=== PATIENT | male | born 1960 | race Hispanic/Latino ===

== ENCOUNTER 2016-10-11 17:02 | Emergency (ER) | payer SELFPAY ==
[2016-10-11] MEDS ORDERED: ZOFRAN IV ONE (17:56)
[2016-10-11 18:23] VITALS: BP 130/67
[2016-10-11 18:40] LABS: Basophils % (Auto) 0.1 % (0.0-1.8); Hematocrit 36.5 % (35.5-45.6); Hemoglobin 12.2 gm/dl (11.8-15.2); Mean Corpuscular HGB Conc 33 % (32-34); Mean Corpuscular Hemoglobin 33 pg (28-32); Mean Corpuscular Volume 100 fl (84-94); Platelet Count 242 K/mm3 (140-440); Red Blood Count 3.65 M/mm3 (3.65-5.03); Red Cell Distribution Width 13.4 % (13.2-15.2); White Blood Count 12.2 K/mm3 (4.5-11.0)
[2016-10-11 18:42] LABS: Urine Drugs of Abuse Note Disclamer
[2016-10-11 18:44] LABS: Anion Gap 17 mmol/L; Blood Urea Nitrogen 12 mg/dL (9-20); Calcium 7.7 mg/dL (8.4-10.2); Carbon Dioxide 28 mmol/L (22-30); Chloride 97.4 mmol/L (98-107); Glucose 96 mg/dL (75-100); Sodium 138 mmol/L (137-145)
[2016-10-11 18:54] LABS: Bilirubin,Urine NEG (Negative); Blood,Urine SM (Negative); Ketones,Urine 80 mg/dL (Negative); Leukocyte Esterase,Urine NEG (Negative); Mucus,Urine 1+ /HPF; Nitrite,Urine NEG (Negative); Protein,Urine <15 mg/dL mg/dL (Negative)
[2016-10-11] MEDS ORDERED: VITAMIN B-1 100 MG, FOLVITE 1 MG, INFUVITE 10 ML in NACL 0.9% 1000 ML 1,000 ML IV ONE (18:55)
[2016-10-11] MEDS: NARCAN 0.4 MG/1 ML IV ONE ×2 (18:56→21:23)
[2016-10-11] MEDS ORDERED: NARCAN 0.4 MG/1 ML IV ONE (18:57)
--- NOTE | 2016-10-11 19:27 | Emergency Department Report ---
HPI - General Chief Complaint: Altered Mental Status Time Seen by Provider: 10/11/16 17:37 - HPI HPI: The patient is a 56-year-old male who presents for evaluation of altered mental status. Per EMS the patient was found was found on scene approximately 30 minutes prior to arrival with decreased responsiveness and severely drowsy. The patient reports experiencing constant and severe tiredness and drowsiness since approximately 11 AM this morning, after taking methadone at pain management clinic. He shares that he also consumed 2 Xanax tablets this morning as well. The patient's submits that she believes he accidentally consumed in excess dosage of his medications. He states that he did not intentionally consume an excess of his medications. The patient denies intentional overdose, headache, chest pain, dyspnea, neuro deficits, suicidal ideations, homicidal ideations, or auditory or visual hallucinations. ED Past Medical Hx - Past Medical History Hx Hypertension: Yes Hx Psychiatric Treatment: Yes (anxiety) Additional medical history: high cholesterol, sciatic nerve problems - Surgical History Additional Surgical History: spinal surgeries - Social History Smoking Status: Never Smoker Substance Use Type: Alcohol, Cocaine, Prescribed, Other - Medications Home Medications: Home Medications Medication Instructions Recorded Confirmed Last Taken Type ALPRAZolam [Xanax TAB] 0.5 mg PO BID PRN 09/20/16 09/20/16 Unknown History Amlodipine Besylate/Benazepril 1 each PO QDAY 09/20/16 09/20/16 Unknown History [Amlodipine-Benazepril 10-20 mg] AtorvaSTATin [Lipitor] 10 mg PO QHS 09/20/16 09/20/16 Unknown History Levocetirizine Dihydrochloride 5 mg PO QDAY 09/20/16 09/20/16 Unknown History [Xyzal] Metoprolol Tartrate [Lopressor] 50 mg PO QDAY 09/20/16 09/20/16 Unknown History Naloxone HCl [Narcan] 2 mg NS Q1HR PRN #2 spray 09/20/16 Unknown Rx Nitroglycerin [Nitrostat] 0.4 mg SL Q5M PRN 09/20/16 09/20/16 Unknown History Ondansetron [Zofran Odt] 4 mg PO Q6HR PRN #15 tab.rapdis 09/20/16 Unknown Rx Ondansetron [Zofran Odt] 4 mg PO Q8HR 09/20/16 09/20/16 Unknown History Oxycodone HCl/Acetaminophen 1 each PO Q6HR PRN 09/20/16 09/20/16 Unknown History [Percocet 7.5/325 mg] Promethazine [Phenergan TAB] 25 mg PO Q6HR PRN 09/20/16 09/20/16 Unknown History Tadalafil [Cialis] 5 mg PO QDAY 09/20/16 09/20/16 Unknown History cloNIDine [Catapres] 0.1 mg PO TID PRN #9 tablet 09/20/16 Unknown Rx oxyCODONE ER 0 mg PO DAILY 09/20/16 09/20/16 Unknown History ED Review of Systems ROS: Stated complaint: OPIATE OD Other details as noted in HPI Constitutional: denies: fever; reports drowsiness ENT: denies: throat or neck pain Respiratory: denies: cough, shortness of breath Cardiovascular: denies: chest pain Endocrine: denies unexplained weight loss or gain Gastrointestinal: denies: abdominal pain, nausea Genitourinary: denies: dysuria Musculoskeletal: denies: leg swelling Skin: denies: rash Neurological: denies: headache Hematological/Lymphatic: denies: easy bleeding or easy bruising Psych: denies sadness or hopelessness Physical Exam - Physical Exam Vital Signs: Vital Signs 10/11/16 10/11/16 10/11/16 17:28 17:34 18:00 Temperature 97.0 F L Pulse Rate 100 H 95 H Respiratory 22 18 Rate Blood Pressure 111/53 130/67 O2 Sat by Pulse 72 L 100 Oximetry 10/11/16 18:25 Temperature Pulse Rate Respiratory 18 Rate Blood Pressure O2 Sat by Pulse 100 Oximetry Physical Exam: General: well-nourished, well-developed, no acute distress Head: Normocephalic, atraumatic Eyes: normal sclera ENT: Mucous membranes are pale and dry Neck: trachea midline, neck supple, No neck stiffness, no cervical adenopathy Respiratory: Breath sounds equal bilaterally, no wheezing, rales, or rhonchi Cardio: S1 and S2 present, no murmurs, rubs, gallops, capillary refill is delayed Abdomen: Normoactive bowel sounds, soft abdomen, no rigidity, no guarding or rebound tenderness Musc: No pitting edema Skin: No rash Neuro: alert, mild drowziness, no facial drooping, normal speech, no pronator drift, no obvious gross sensation and motor deficit in the arms or legs, reflexes 2+ symmetric on DTR testing, no correlation deficit. To nose testing, no obvious gross neuro deficits Psych: Normal affect ED Course Vital Signs 10/11/16 10/11/16 10/11/16 17:28 17:34 18:00 Temperature 97.0 F L Pulse Rate 100 H 95 H Respiratory 22 18 Rate Blood Pressure 111/53 130/67 O2 Sat by Pulse 72 L 100 Oximetry 10/11/16 18:25 Temperature Pulse Rate Respiratory 18 Rate Blood Pressure O2 Sat by Pulse 100 Oximetry ED Medical Decision Making - Lab Data Result diagrams: 10/11/16 18:11 10/11/16 18:11 - Medical Decision Making The patient was seen and examined by myself. The patient is placed on a [employer] and continuous pulse ox. On initial evaluation, the patient was found to be in no distress. Evaluation orders were placed. The patient has minimal drowsiness. The patient is given 1 mL of Narcan. The patient's drowsiness resolves. The patient given a banana bag infusion for treatment of his dehydration. Lab results reveal positive benzo and methadone screens on UDS , and otherwise labs were not concerning. X-ray of the chest is unremarkable. The patient is observed in the emergency department for 4 hours. The patient was reevaluated and reported that his symptoms were resolved. On reexamination he has no drowsiness or respiratory depression whatsoever. The patient is stable for discharge with outpatient follow-up. The patient is given follow-up and return instructions. The patient expressed understanding and agreed with the plan. The patient is discharged in stable condition. Critical care attestation.: If time is entered above; I have spent that time in minutes in the direct care of this critically ill patient, excluding procedure time. ED Disposition Clinical Impression: Narcotic-induced respiratory depression, Hypoxia, Dehydration Accidental overdose Qualifiers: Encounter type: initial encounter Qualified Code(s): T50.901A - Poisoning by unspecified drugs, medicaments and biological substances, accidental ( unintentional), initial encounter Disposition: DISCHARGED TO HOME OR SELFCARE Is pt being admited?: No Does the pt Need Aspirin: No Condition: Stable Instructions: Polysubstance Abuse (ED), Dehydration (ED) Referrals: PRIMARY CARE, [Primary Care Provider] - 3-5 Days [facility] [Outside] - 3-5 Days Time of Disposition: 19:36
--- NOTE | 2016-10-12 09:27 | XRay Report ---
PORTABLE CHEST: INDICATION: Chest pain. COMPARISON: 05/24/2012 FINDINGS: Portable, frontal chest radiograph demonstrates poorer inspiration with slightly crowded lung markings and slight exaggerated, though stable cardiomediastinal silhouette, within normal limits. No pleural effusions or CHF. EKG leads. Stable bones, including lower cervical fusion hardware. CONCLUSION: No acute disease in the chest or significant interval change, providing for the difference in technique, as described. Thank you for the opportunity to participate in this patient's care.
== END 2016-10-11 21:24 | disposition home or self-care (01) ==
LOC: ED 17:02
DX: T50.901A Poisoning by unspecified drugs, medicaments and biological substances, accidental (unintentional), initial encounter (principal); F32.9 Major depressive disorder, single episode, unspecified; E86.0 Dehydration; I10 Essential (primary) hypertension; F41.9 Anxiety disorder, unspecified; E78.00 Pure hypercholesterolemia, unspecified; F14.90 Cocaine use, unspecified, uncomplicated; Y92.89 Other specified places as the place of occurrence of the external cause
CPT/HCPCS: 36415; 71010; 80048; 80307; 81001; 82140; 83880; 85025; 96365; 96366; 96375; 99285; G0480; J2310; J2405; J3411; J7030; 80320

== ENCOUNTER 2019-04-14 11:52 | Emergency (ER) | payer OTHER ==
[2019-04-14] MEDS ORDERED: NACL 0.9% 1000 ML 2,000 ML IV ONE (12:05)
[2019-04-14] MEDS ORDERED: HALDOL IM STA (12:05)
[2019-04-14] MEDS ORDERED: ATIVAN IV STA (12:05)
[2019-04-14] MEDS ORDERED: PEPCID IV ONE ×2 (12:06→14:11)
[2019-04-14] MEDS ORDERED: NITROSTAT SL PRN (12:06)
[2019-04-14] MEDS ORDERED: ATIVAN IM PRN (12:12)
[2019-04-14] MEDS ORDERED: HALDOL IM PRN (12:12)
[2019-04-14 12:18] LABS: Basophils # (Auto) 0.1 K/mm3 (0.0-0.1); Basophils % (Auto) 1.1 % (0.0-1.8); Eosinophils # (Auto) 0.2 K/mm3 (0.0-0.4); Eosinophils % (Auto) 2.2 % (0.0-4.3); Hematocrit 43.9 % (35.5-45.6); Hemoglobin 15.3 gm/dl (11.8-15.2); Lymphocytes # (Auto) 3.2 K/mm3 (1.2-5.4); Mean Corpuscular HGB Conc 35 % (32-34); Mean Corpuscular Hemoglobin 33 pg (28-32); Mean Corpuscular Volume 94 fl (84-94); Monocytes # (Auto) 0.7 K/mm3 (0.0-0.8); Monocytes % (Auto) 8.6 % (0.0-7.3); Platelet Count 363 K/mm3 (140-440); Red Blood Count 4.69 M/mm3 (3.65-5.03); Red Cell Distribution Width 13.6 % (13.2-15.2)
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
[2019-04-14 12:29] LABS: INR 0.95 (0.87-1.13)
[2019-04-14 12:30] LABS: Partial Thromboplastin Time 22.2 Sec. (24.2-36.6)
[2019-04-14 12:35] LABS: Alanine Aminotransferase 20 units/L (7-56); Albumin 4.5 g/dL (3.9-5); BUN/Creatinine Ratio 6; Blood Urea Nitrogen 5 mg/dL (9-20); Calcium 9.7 mg/dL (8.4-10.2); Hemolysis Index 18
--- NOTE | 2019-04-14 13:23 | XRay Report ---
CHEST 1 VIEW INDICATION / CLINICAL INFORMATION: cp sob. COMPARISON: None available. FINDINGS: SUPPORT DEVICES: None. HEART / MEDIASTINUM: No significant abnormality. LUNGS / PLEURA: No significant pulmonary or pleural abnormality. No pneumothorax. ADDITIONAL FINDINGS: No significant additional findings. IMPRESSION: 1. No acute findings. Signer Name: Jason Hsu MD Signed: 04/14/2019 1:18 PM Workstation Name: [id number]
[2019-04-14] MEDS: KCL 10MEQ/100ML 10 MEQ/100 ML BAG IV SCH ×2 (14:06→15:50)
[2019-04-14] MEDS ORDERED: NACL 0.9% 1000 ML 1,000 ML ONE (14:12)
[2019-04-14] MEDS ORDERED: NACL 0.9% 1000 ML 1,000 ML IV ONE (14:40)
[2019-04-14] MEDS ORDERED: ATIVAN IV ONE (14:40)
[2019-04-14 17:25] VITALS: BP 163/91
== END 2019-04-14 17:42 ==
LOC: ED 11:52 → EEVIPCON 11:52 → ED 17:42
DX: F10.129 Alcohol abuse with intoxication, unspecified (principal); R07.9 Chest pain, unspecified; I10 Essential (primary) hypertension; F41.9 Anxiety disorder, unspecified; E78.00 Pure hypercholesterolemia, unspecified; Z98.890 Other specified postprocedural states; Z79.899 Other long term (current) drug therapy
CPT/HCPCS: 36415; 71045; 80053; 82550; 83735; 84484; 85025; 85610; 85730; 93005; 93010; 96374; 96375; 99285; J1630; J2060; J3480; J7030; 80320; G0480